=== PATIENT | male | born 2000 | race African-American/Black ===

== ENCOUNTER 2021-11-12 11:28 | Emergency (ER) | payer OTHER, BC, SELFPAY ==
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
[2021-11-12 11:30] VITALS: BP 128/82; PULSE 80; RESP 18; TEMP 36.6; O2SAT 97
[2021-11-12] MEDS: IBUPROFEN 600 MG TABLET PO (12:39)
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
[2021-11-12 13:21] VITALS: BP 124/84; PULSE 68; RESP 12; O2SAT 100
== END 2021-11-12 13:22 | disposition home or self-care (01) ==
PROVIDERS: Emergency Provider Emergency Medicine
DX: S16.1XXA Strain of muscle, fascia and tendon at neck level, initial encounter (principal); S39.92XA Unspecified injury of lower back, initial encounter; V43.52XA Car driver injured in collision with other type car in traffic accident, initial encounter
CPT/HCPCS: 72072; 72110; 72125; 99284; A9270; L0140